=== PATIENT | male | born 1960 | race Caucasian/White ===

== ENCOUNTER 2016-05-22 13:05 | Emergency (ER) | payer OTHER ==
[~2016-05-22] VITALS: Wt 79.5 kg
[~2016-05-22 13:05] MED LIST: ALBU8.5H3 INH; MECL25TA2 PO
[2016-05-22] MEDS ORDERED: ONDANSETRON (ODT) 4 MG TAB ODT STA (14:28)
--- NOTE | 2016-05-22 14:47 | ERD ---
ER Documentation Chief Complaint Date/Time DATE: 05/22/16 TIME: 14:44 Chief Complaint dizzy, nausea, "face is hot" HPI This patient is a 55-year-old male presenting to the emergency department for feeling lightheaded for approximately 2 hours. The patient also states that when he closes eyes he feels that the room is spinning. He has had similar symptoms in the past. He also notes his face is feeling flushed and he feels nauseated. He has taken no medications for his symptoms. He has no shortness of breath, chest pain, headaches, fevers, chills or other symptoms at this time. There are no other alleviating or exacerbating factors at this time. ROS All systems reviewed and are negative except as per history of present illness. Medications Home Meds Active Scripts Mometasone-Formoterol (Dulera) 100-5 Mcg - 13 Gm Hfa.aer.ad, 2 PUFFS INHALATION BID, #1 INHALER Prov:TITUS ABBASI PA-C 05/22/16 Albuterol Sulfate* (Ventolin HFA*) 18 Gm Hfa.aer.ad, 2 PUFF INHALATION Q4H, #1 INHALER Prov:TITUS ABBASI PA-C 05/22/16 Meclizine Hcl* (Antivert*) 12.5 Mg Tab, 12.5 MG PO Q6H Y for DIZZINESS, #20 TAB Prov:TITUS ABBASI PA-C 05/22/16 Albuterol Sulfate* (Proair HFA*) 8.5 Gm Hfa.aer.ad, 2 PUFF INH Q4, #1 INHALER Prov:RODGER MONTGOMERY DO 01/02/16 Meclizine Hcl* (Antivert*) 25 Mg Tablet, 25 MG PO Q6H Y for DIZZINESS, #20 TAB Prov:RODGER MONTGOMERY DO 01/02/16 Allergies Allergies: Coded Allergies: No Known Allergy (Unverified , 01/02/16) PMhx/Soc Medical and Surgical Hx: pt denies Medical Hx, pt denies Surgical Hx Hx Alcohol Use: No Hx Substance Use: No Hx Tobacco Use: No FmHx Noncontributory for chief complaint Physical Exam Vitals Vital Signs Date Time Temp Pulse Resp B/P Pulse Ox O2 Delivery O2 Flow Rate FiO2 05/22/16 16:26 97.7 60 18 128/78 97 Room Air 05/22/16 13:20 97.9 60 20 153/60 100 Physical Exam INITIAL VITAL SIGNS: Reviewed by me GENERAL: The patient is well developed and appropriate for usual state of health in no apparent distress HEENT: Pupils equal, round, and reactive to light. EOMI. There is no scleral icterus. NECK: C-spine is soft and supple, there is no meningismus. There is no cervical lymphadenopathy. LUNGS: Clear to auscultation bilaterally. There are no rales, wheezes or rhonchi. HEART: Regular rate and rhythm, no murmurs, clicks, rubs or gallops. ABDOMEN: Soft, non-tender, non-distended. There are bowel sounds in all four quadrants. No rebound or guarding. EXTREMITIES: There is no peripheral cyanosis or edema. No focal swelling or erythema. NEUROLOGICAL: The patient moves all four extremities with 5/5 strength. Cranial nerves II - XII are intact. Normal gait. Alert and oriented. Negative Romberg's test. SKIN: There is no apparent rash or petechiae. HEME/LYMPHATIC: There is no evidence of excessive bruising or lymphedema. PSYCHIATRIC: The patient does not appear anxious or depressed. Result Diagram: 05/22/16 1459 05/22/16 1459 Results 24 hrs Laboratory Tests Test 05/22/16 14:58 05/22/16 14:59 Bedside Glucose 116mg/dL Anion Gap 16 Basophils # 0.010^3/ul Basophils % 0.6% Blood Urea Nitrogen 10mg/dl Calcium Level 9.5mg/dl Carbon Dioxide Level 28mmol/L Chloride Level 103mmol/L Creatinine 0.92mg/dl Eosinophils # 0.510^3/ul Eosinophils % 6.8% Glucose Level 111mg/dl Hematocrit 41.0% Hemoglobin 13.9g/dl Lymphocytes # 2.110^3/ul Lymphocytes % 28.1% Mean Corpuscular Hemoglobin 29.1pg Mean Corpuscular Hemoglobin Concent 33.8g/dl Mean Corpuscular Volume 86.1fl Mean Platelet Volume 8.3fl Monocytes # 0.610^3/ul Monocytes % 7.9% Neutrophils # 4.210^3/ul Neutrophils % 56.6% Nucleated Red Blood Cells # 0.010^3/ul Nucleated Red Blood Cells % 0.0/100WBC Platelet Count 67809^3/UL Potassium Level 3.8mmol/L Red Blood Count 4.7610^6/ul Red Cell Distribution Width 13.6% Sodium Level 143mmol/L White Blood Count 7.410^3/ul Current Medications Medications (Trade) Dose Ordered Sig/Tin Route PRN Reason Start Time Stop Time Status Last Admin Dose Admin Ondansetron HCl (Zofran Odt) 4 mg ONCE STAT ODT 05/22/16 14:28 05/22/16 14:29 DC 05/22/16 14:55 Procedures/MDM ED course: Lab results reviewed. No acute abnormalities noted. CT brain without contrast: Unremarkable unenhanced CT of the brain Medications: The patient was given PO zofran for nausea. EKG: Interpreted by ED physician. Rate/Rhythm: Normal sinus rhythm, 63 bpm. QRS, ST, T-waves: No changes consistent w/ acute ischemia Impression: No evidence of ischemia or arrhythmia Reevaluation: On re-evluation the patient was feeling improved and ambulating well within the department (3:30pm). MDM: 35-year-old male with no significant medical history presenting to the department with vertigo symptoms which began today. On physical examination there are no neurological deficits and all cranial nerves are intact. Review of lab results show no acute abnormalities. CT brain without contrast shows no intracranial abnormalities. The patient's primary diagnosis is benign positional vertigo and he has been given meclizine to be treated as an outpatient. He is stable for discharge. His questions and concerns have been addressed. Departure Condition: Stable Additional Instructions: Follow-up with your primary care physician within 1 week. If symptoms persist, referral to a specialist may be required. Return to the emergency department immediately should you have any new or worsening symptoms, uncontrolled fevers, or other unexplained symptoms. Take all medications as directed. Do not drive, work, or operate heavy machinery while taking Meclizine. TITUS ABBASI PA-C May 22, 2016 14:47
[2016-05-22 15:06] LABS: BASOPHILS % 0.6 % (0.0-2.0); EOSINOPHILS # 0.5 10^3/ul (0.0-0.5); EOSINOPHILS % 6.8 % (0.0-7.0); HEMOGLOBIN 13.9 g/dl (14.0-18.0); LYMPHOCYTES # 2.1 10^3/ul (0.8-2.9); LYMPHOCYTES % 28.1 % (15.0-51.0); MEAN CORPUSCULAR HEMOGLOBIN 29.1 pg (29.0-33.0); MEAN CORPUSCULAR HGB CONC 33.8 g/dl (32.0-37.0); MEAN CORPUSCULAR VOLUME 86.1 fl (82.0-101.0); MEAN PLATELET VOLUME 8.3 fl (7.4-10.4); MONOCYTE # 0.6 10^3/ul (0.3-0.9); MONOCYTES % 7.9 % (0.0-11.0); NEUTROPHIL # 4.2 10^3/ul (1.6-7.5); NEUTROPHILS % 56.6 % (39.0-77.0); PLATELET COUNT 226 10^3/UL (140-440); RED BLOOD COUNT 4.76 10^6/ul (4.70-6.10); RED CELL DISTRIBUTION WIDTH 13.6 % (11.5-14.5); UNCORRECTED WBC 7.4 10^3/ul (4.8-10.8); WHITE BLOOD COUNT 7.4 10^3/ul (4.8-10.8)
[2016-05-22 15:21] LABS: POTASSIUM 3.8 mmol/L (3.5-5.1)
[2016-05-22 15:24] LABS: CREATININE 0.92 mg/dl (0.61-1.24)
[2016-05-22 15:25] LABS: CALCIUM 9.5 mg/dl (8.4-10.2)
[2016-05-22 15:36] LABS: CONDITION 1
--- NOTE | 2016-05-22 15:36 | RADRPT ---
PROCEDURE: CT head CLINICAL INDICATION: Syncope TECHNIQUE: Contiguous 2.5 mm axial images were obtained from the vertex to the skull base. No int ravenous contrast was administered. The calculated dose length product (DLP) = 630.2 mGy-cm. The CTDlvol = 44.99 mGy. One or more of the following dose reduction techniques were used: Automated ex posure control, adjustment of the mA and or KV according to patient size, or use of iterative recons truction technique. COMPARISON: None FINDINGS: There is no evidence of acute intracranial hemorrhage or acute territorial infarct. No mass or mass effect is seen on this noncontrast study. The ventricles and cisterns are normal in size and confi guration. The medrano-white matter differentiation is within normal limits. The visualized paranasal sinuses are normally aerated. The bony calvarium is unremarkable IMPRESSION: Unremarkable unenhanced CT of the brain RPTAT: HH .Malcolm Whitehead MD, Date Time Electronically viewed and signed by .Malcolm Whitehead MD, MD on 05/22/2016 15:36 .W/
[2016-05-22] MEDS ORDERED: MECL12.574 PO (16:02)
[2016-05-22] MEDS ORDERED: ALBU18HF INHALATION (16:08)
[2016-05-22] MEDS ORDERED: MOME13HF2 INHALATION (16:09)
[2016-05-22 16:26] VITALS: BP 128/78; PULSE 60; RESP 18; TEMP 97.7
== END 2016-05-22 16:28 | disposition home or self-care (01) ==
LOC: FTE 13:05
DX: R42 Dizziness and giddiness (principal)
CPT/HCPCS: 36415; 70450; 80048; 82962; 85025; 93005; Z7502; Z7610

== ENCOUNTER 2016-06-18 12:39 | Emergency (ER) | payer OTHER ==
[~2016-06-18] VITALS: Wt 81.5 kg
[~2016-06-18 12:39] MED LIST changes: +ALBU18HF INHALATION; +MECL12.574 PO; +MOME13HF2 INHALATION
[2016-06-18] MEDS ORDERED: SODIUM CHLORIDE 0.9% 1L BAG IV* STA (15:33)
[2016-06-18] MEDS ORDERED: ONDANSETRON 4 MG INJ IV STA (15:33)
[2016-06-18] MEDS ORDERED: ALBUTEROL 0.5% (NEB) 2.5 MG/0.5 ML AMP INH STA (15:33)
[2016-06-18] MEDS ORDERED: IBUPROFEN 600 MG TAB PO ONE (16:00)
[2016-06-18] MEDS ORDERED: CEFTRIAXONE 1 GM/50 ML (PMX) 50 ML IVPB ONE (16:00)
[2016-06-18 16:11] LABS: ADD UMIC YES; URINE BILIRUBIN (Dip) NEGATIVE (NEGATIVE); URINE BLOOD (Dip) 2+ (NEGATIVE); URINE COLOR LT. YELLOW (YELLOW); URINE GLUCOSE (Dip) NEGATIVE (NEGATIVE); URINE KETONES (Dip) NEGATIVE (NEGATIVE); URINE LEUKOCYTE ESTERASE (Dip) NEGATIVE (NEGATIVE); URINE NITRITE (Dip) NEGATIVE (NEGATIVE); URINE TOTAL PROTEIN (Dip) 1+ (NEGATIVE); URINE UROBILINOGEN (Dip) 1.0 E.U./dL (0.1-1.0)
[2016-06-18 16:13] LABS: EOSINOPHILS % 0.2 % (0.0-7.0); HEMATOCRIT 46.2 % (42.0-52.0); HEMOGLOBIN 15.7 g/dl (14.0-18.0); LYMPHOCYTES # 0.5 10^3/ul (0.8-2.9); MEAN CORPUSCULAR HEMOGLOBIN 29.5 pg (29.0-33.0); MEAN CORPUSCULAR VOLUME 86.7 fl (82.0-101.0); MEAN PLATELET VOLUME 8.3 fl (7.4-10.4); MONOCYTE # 1.3 10^3/ul (0.3-0.9); MONOCYTES % 14.8 % (0.0-11.0); NEUTROPHIL # 6.8 10^3/ul (1.6-7.5); PLATELET COUNT 195 10^3/UL (140-440); RED BLOOD COUNT 5.33 10^6/ul (4.70-6.10); RED CELL DISTRIBUTION WIDTH 13.6 % (11.5-14.5); UNCORRECTED WBC 8.7 10^3/ul (4.8-10.8); WHITE BLOOD COUNT 8.7 10^3/ul (4.8-10.8)
[2016-06-18 16:19] LABS: MUCUS,URINE RARE; URINE RBCS 0-2 /HPF (0)
[2016-06-18 16:22] LABS: CONDITION 1
[2016-06-18 16:23] LABS: ALBUMIN 4.8 g/dl (3.3-4.9); CHLORIDE 99 mmol/L (97-110); INR 1.14; POTASSIUM 4.2 mmol/L (3.5-5.1); PROTIME 14.6 Sec (12.2-14.2); PT RATIO 1.1; SODIUM 143 mmol/L (135-144)
[2016-06-18 16:24] LABS: PARTIAL THROMBOPLASTIN TIME 36.8 Sec (25.0-35.0)
[2016-06-18 16:25] LABS: BILIRUBIN,INDIRECT 0.2 mg/dl (0-1.1); BILIRUBIN,TOTAL 0.2 mg/dl (0.2-1.3); CREATININE 1.21 mg/dl (0.61-1.24)
[2016-06-18 16:26] LABS: ALANINE AMINOTRANSFERASE 26 IU/L (13-69); ALBUMIN/GLOBULIN RATIO 1.14; ALKALINE PHOSPHATASE 103 IU/L (42-121); ANION GAP 22 (8-16); ASPARTATE AMINO TRANSFERASE 25 IU/L (15-46); BLOOD UREA NITROGEN 13 mg/dl (7-20); CALCIUM 9.5 mg/dl (8.4-10.2); CARBON DIOXIDE 26 mmol/L (21-31); GLUCOSE 118 mg/dl (70-220)
[2016-06-18 16:42] LABS: TROPONIN-I < 0.012 ng/ml (0.00-0.12)
--- NOTE | 2016-06-18 16:59 | RADRPT ---
PROCEDURE: XR Chest. CLINICAL INDICATION: Cough TECHNIQUE: Single AP portable chest COMPARISON: 01/02/2016 FINDINGS: The cardiomediastinal silhouette is within normal limits of size ..The lungs are clear without pleur al effusion or focal consolidation. No pneumothorax. The osseous structures and soft tissues are unr emarkable. IMPRESSION: 1. No evidence for active cardiopulmonary disease. RPTAT:AAJJ Kasey Painter Physician Date Time Electronically viewed and signed by Kasey Painter Physician on 06/18/2016 16:59 LISA/
[2016-06-18] MEDS ORDERED: OSELTAMIVIR 75 MG CAP PO ONE (18:30)
[2016-06-18] MEDS ORDERED: IBUP-1542 PO (18:43)
[2016-06-18] MEDS ORDERED: OSLT75C PO (18:43)
[2016-06-18] MEDS ORDERED: ALBU8.5H3 INH (18:43)
--- NOTE | 2016-06-18 18:54 | ERD ---
ER Documentation Chief Complaint Date/Time DATE: 06/18/16 TIME: 18:47 Chief Complaint FEVER/ASTHMA/SOB X 2 [place] HPI 55-year-old man presents with fever, body aches, nasal congestion, rhinorrhea, cough and wheezing, sore throat for 2 days. He does have a history of asthma although denies that this is an asthma attack. Patient denies chest pain or abdominal pain, no vomiting or diarrhea, no recent antibiotic use or recent travel. Patient denies headache or neck pain. Denies neck stiffness. ROS All systems reviewed and are negative except as per history of present illness. Medications Home Meds Active Scripts Ibuprofen* (Ibuprofen*) 600 Mg Tablet, 600 MG PO Q8 for FEVER, #30 TAB Prov:CHLOÉ DENNIS MD 06/18/16 Oseltamivir Phosphate* (Tamiflu*) 75 Mg Capsule, 75 MG PO BID for 5 Days, #9 CAP Prov:CHLOÉ DENNIS MD 06/18/16 Albuterol Sulfate* (Proair HFA*) 8.5 Gm Hfa.aer.ad, 2 PUFF INH Q6H Y for COUGH, #1 INHALER Prov:CHLOÉ DENNIS MD 06/18/16 Mometasone-Formoterol (Dulera) 100-5 Mcg - 13 Gm Hfa.aer.ad, 2 PUFFS INHALATION BID, #1 INHALER Prov:TITUS ABBASI PA-C 05/22/16 Albuterol Sulfate* (Ventolin HFA*) 18 Gm Hfa.aer.ad, 2 PUFF INHALATION Q4H, #1 INHALER Prov:TITUS ABBASI PA-C 05/22/16 Meclizine Hcl* (Antivert*) 12.5 Mg Tab, 12.5 MG PO Q6H Y for DIZZINESS, #20 TAB Prov:TITUS ABBASI PA-C 05/22/16 Discontinued Scripts Albuterol Sulfate* (Proair HFA*) 8.5 Gm Hfa.aer.ad, 2 PUFF INH Q4, #1 INHALER Prov:RODGER MONTGOMERY DO 01/02/16 Meclizine Hcl* (Antivert*) 25 Mg Tablet, 25 MG PO Q6H Y for DIZZINESS, #20 TAB Prov:RODGER MONTGOMERY DO 01/02/16 Allergies Allergies: Coded Allergies: No Known Allergy (Unverified , 06/18/16) PMhx/Soc Asthma Medical and Surgical Hx: pt denies Medical Hx, pt denies Surgical Hx Hx Alcohol Use: No Hx Substance Use: No Hx Tobacco Use: No Smoking Status: Light tobacco smoker FmHx Family History: No diabetes Physical Exam Vitals Vital Signs Date Time Temp Pulse Resp B/P Pulse Ox O2 Delivery O2 Flow Rate FiO2 06/18/16 18:25 99.6 89 18 117/58 99 Room Air 06/18/16 17:15 128 22 93 21 06/18/16 16:12 Nasal Cannula 06/18/16 12:41 103.8 128 22 132/67 93 Physical Exam GENERAL: Well-developed, well-nourished, well-hydrated, febrile HEENT: Moist mucous membranes, positive nasal congestion and rhinorrhea, no cervical spine tenderness or step-off deformities, no goiter, no jaundice or icterus, extraocular movements intact without pain. No submandibular induration , and there is mild pharyngeal erythema but no exudates. NEURO: Alert and oriented 3, cranial nerves II through XII intact bilaterally, pupils equal round reactive to light, no focal deficits or facial asymmetry, sensation intact distally Strength 5/5 in upper and lower extremities bilaterally CARDIAC: Tachycardic and regular, no murmurs rubs or gallops LUNGS: Scattered wheezes bilaterally, no crackles or stridor ABDOMEN: Soft nontender, no guarding, no rigidity, no rebound, no psoas sign no obturator sign. Normoactive bowel sounds SKIN: Warm and dry to touch, no abrasions, contusions, or hematomas, no lacerations, no ecchymosis, no target lesions, and without ulcers EXTREMITIES: No clubbing cyanosis or edema, calves are bilaterally symmetrical, no Homans sign, no popliteal cord sign. Distal pulses equal and bilateral PSYCH: Normal affect without agitation or irritability Result Diagram: 06/18/16 1600 06/18/16 1600 Results 24 hrs Laboratory Tests Test 06/18/16 16:00 06/18/16 16:05 Activated Partial Thromboplast Time 36.8Sec Alanine Aminotransferase (ALT/SGPT) 26IU/L Albumin 4.8g/dl Albumin/Globulin Ratio 1.14 Alkaline Phosphatase 103IU/L Anion Gap 22 Aspartate Amino Transf (AST/SGOT) 25IU/L Basophils # 0.010^3/ul Basophils % 0.0% Blood Urea Nitrogen 13mg/dl Calcium Level 9.5mg/dl Carbon Dioxide Level 26mmol/L Chloride Level 99mmol/L Creatinine 1.21mg/dl Direct Bilirubin 0.00mg/dl Eosinophils # 0.010^3/ul Eosinophils % 0.2% Globulin 4.20g/dl Glucose Level 118mg/dl Hematocrit 46.2% Hemoglobin 15.7g/dl INR International Normalized Ratio 1.14 Indirect Bilirubin 0.2mg/dl Lactic Acid Level 1.3mmol/L Lipase 67U/L Lymphocytes # 0.510^3/ul Lymphocytes % 6.0% Mean Corpuscular Hemoglobin 29.5pg Mean Corpuscular Hemoglobin Concent 34.0g/dl Mean Corpuscular Volume 86.7fl Mean Platelet Volume 8.3fl Monocytes # 1.310^3/ul Monocytes % 14.8% Neutrophils # 6.810^3/ul Neutrophils % 79.0% Nucleated Red Blood Cells # 0.010^3/ul Nucleated Red Blood Cells % 0.0/100WBC Platelet Count 38354^3/UL Potassium Level 4.2mmol/L Prothrombin Time 14.6Sec Prothrombin Time Ratio 1.1 Red Blood Count 5.3310^6/ul Red Cell Distribution Width 13.6% Sodium Level 143mmol/L Total Bilirubin 0.2mg/dl Total Protein 9.0g/dl Troponin I < 0.012ng/ml White Blood Count 8.710^3/ul Urine Bilirubin NEGATIVE Urine Clarity CLEAR Urine Color LT. YELLOW Urine Glucose NEGATIVE% Urine Hemoglobin 2+ Urine Ketones NEGATIVE Urine Leukocyte Esterase NEGATIVE Urine Microscopic RBC 0-2/HPF Urine Microscopic WBC NONE SEEN/HPF Urine Mucus RARE Urine Nitrite NEGATIVE Urine Specific [place] >=1.030 Urine Total Protein 1+ Urine Urobilinogen 1.0 E.U./dL Urine pH 5.5 Current Medications Medications (Trade) Dose Ordered Sig/Tin Route PRN Reason Start Time Stop Time Status Last Admin Dose Admin Albuterol (Proventil 0.5% (Neb)) 10 mg ONCE STAT INH 06/18/16 15:33 06/18/16 15:36 DC 06/18/16 17:14 Sodium Chloride (NS) 3,000 ml BOLUS OVER 2 HOURS STAT IV* 06/18/16 15:33 06/18/16 15:36 DC 06/18/16 16:10 Ibuprofen (Motrin) 600 mg ONCE ONCE PO 06/18/16 16:00 06/18/16 16:01 DC 06/18/16 16:08 Ondansetron HCl 4 mg 4 mg ONCE STAT IV 06/18/16 15:33 06/18/16 15:36 DC 06/18/16 16:10 Ceftriaxone Sodium (Rocephin) 50 ml @ 100 mls/hr ONCE ONCE IVPB 06/18/16 16:00 06/18/16 16:29 DC 06/18/16 16:11 Oseltamivir Phosphate (Tamiflu) 75 mg ONCE ONCE PO 06/18/16 18:30 06/18/16 18:31 DC Procedures/[facility] IV line was established patient was placed on cardiac rehabilitation program director rhythm strip revealed a sinus tachycardia at 110 bpm with upright P and T waves. Patient was febrile. I administered about 3 L normal saline intravenously, ibuprofen 600 mg p.o., Zofran 4 mg IV, and ceftriaxone 1 g IV. I also administered albuterol 10 mg via nebulizer for cough and scattered wheezes. CBC was unremarkable, electrolytes were normal, liver function tests are normal , troponin was negative, lactic acid was low at 1.3. Urine analysis was negative for infection. Influenza swabs were performed influenza A is positive , influenza B negative. I treated the patient with Tamiflu 75 mg p.o. here in the ED. One AP view of the chest performed, read by me reveals no acute infiltrates, normal mediastinum, sharp costophrenic and cardiac borders, no air under the diaphragm. Otherwise unremarkable chest x-ray. I reevaluated the patient. He has defervesced and tachycardia has resolved, vital signs are normal at this time. Patient feels much better and his repeat pulmonary exam revealed clear lungs without wheezing or stridor. I feel the patient can be managed as an outpatient with Tamiflu and albuterol inhaler. Both verbal and written recommendations were provided upon discharge. Differential diagnoses considered, included but not limited to acute coronary syndrome, pulmonary embolism, aortic dissection, abdominal aortic aneurysm, sepsis, stroke, meningitis, encephalitis, pneumonia, appendicitis, cholecystitis , bowel obstruction, pyelonephritis, nephrolithiasis, cystitis, as well as metabolic, hematologic, and electrolyte abnormalities. As well as abscess, cellulitis, fractures, and dislocations. Patient feels much better at this time, and vital signs are normal, symptoms have improved. I did give strict instructions to return to the ED if symptoms continue or worsen, patient will otherwise follow-up with primary care physician. Patient understood instructions and agreed to plan. Departure Diagnosis: Primary Impression: Influenza A with respiratory manifestations Condition: Good Patient Instructions: Influenza (Adult) CHLOÉ DENNIS MD Jun 18, 2016 18:54
[2016-06-18] MEDS ORDERED: ALBUTEROL 0.083% (NEB) 2.5 MG/3 ML AMP HHN ONE (21:00)
[2016-06-18 21:40] VITALS: BP 123/64; PULSE 83; RESP 18; TEMP 97.9
== END 2016-06-18 21:40 | disposition home or self-care (01) ==
LOC: E/R 12:39
DX: J10.1 Influenza due to other identified influenza virus with other respiratory manifestations (principal); R40.2142 Coma scale, eyes open, spontaneous, at arrival to emergency department; R40.2252 Coma scale, best verbal response, oriented, at arrival to emergency department; R40.2362 Coma scale, best motor response, obeys commands, at arrival to emergency department; F17.210 Nicotine dependence, cigarettes, uncomplicated; J45.901 Unspecified asthma with (acute) exacerbation
CPT/HCPCS: 36415; 71010; 80053; 81001; 83605; 83690; 84484; 85025; 85610; 85730; 87040; 87086; 87400; 94640; 94644; 96374; 96375; J0696; J2405; J7030; Z7502; Z7610; 81003

== ENCOUNTER 2017-02-05 09:49 | Emergency (ER) | payer OTHER ==
[~2017-02-05] VITALS: Ht 167.6 cm; Wt 83.0 kg
[~2017-02-05 09:49] MED LIST changes: +IBUP-1542 PO; -MECL25TA2 PO; +OSLT75C PO
[2017-02-05 09:52] VITALS: Ht 167.6 cm; Wt 83.0 kg
[2017-02-05] MEDS ORDERED: TETRACAINE 0.5% 4 ML OPH LEFT EYE ONE (12:00)
[2017-02-05] MEDS ORDERED: FLUORESCEIN STRIP LEFT EYE ONE (12:00)
--- NOTE | 2017-02-05 13:44 | RADRPT ---
PROCEDURE: XR facial bones CLINICAL INDICATION: Injury left eye socket TECHNIQUE: A Novak, a Le view and a lateral view were submitted. COMPARISON: None FINDINGS: Paranasal sinuses : appear well-developed and well-aerated with no opacification, air-fluid levels or mucoperiosteal thickening. Mastoid air cells: appear well aerated. Osseous structures: appear intact. Temporomandibular joints: appear unremarkable Soft tissues: There is superficial periorbital soft tissue swelling as noted on the lateral projecti on. IMPRESSION: 1. Periorbital soft tissue swelling. 2. Otherwise, unremarkable facial bone study. Physician Darnell Date Time Electronically viewed and signed by Physician Darnell on 02/05/2017 13:44 /
[2017-02-05] MEDS ORDERED: ACET325T33 PO (13:56)
--- NOTE | 2017-02-05 15:25 | ERD ---
ER Documentation Chief Complaint Date/Time DATE: 02/05/17 TIME: 14:35 Chief Complaint left eye pain, headache s/p a drill fell from about 18ft and hit his head HPI 56-year-old male complaining of left eye pain after a drill fell off of a ladder and hit his left side of head. Patient denies any agile deficits or loss of consciousness. He denies headaches. He was concerned because he "felt bleeding from his eye". Denies vomiting. Has not taken medications for symptoms. ROS All systems reviewed and are negative except as per history of present illness. Medications Home Meds Active Scripts Acetaminophen* (Tylenol*) 325 Mg Tablet, 2 TAB PO Q8 Y for PAIN AND OR ELEVATED TEMP, #20 TAB Prov:PHILIPP MARSHALL PA-C 02/05/17 Ibuprofen* (Ibuprofen*) 600 Mg Tablet, 600 MG PO Q8 for FEVER, #30 TAB Prov:CHLOÉ DENNIS MD 06/18/16 Oseltamivir Phosphate* (Tamiflu*) 75 Mg Capsule, 75 MG PO BID for 5 Days, #9 CAP Prov:CHLOÉ DENNIS MD 06/18/16 Albuterol Sulfate* (Proair HFA*) 8.5 Gm Hfa.aer.ad, 2 PUFF INH Q6H Y for COUGH, #1 INHALER Prov:CHLOÉ DENNIS MD 06/18/16 Mometasone-Formoterol (Dulera) 100-5 Mcg - 13 Gm Hfa.aer.ad, 2 PUFFS INHALATION BID, #1 INHALER Prov:TITUS ABBASI PA-C 05/22/16 Albuterol Sulfate* (Ventolin HFA*) 18 Gm Hfa.aer.ad, 2 PUFF INHALATION Q4H, #1 INHALER Prov:TITUS ABBASI PA-C 05/22/16 Meclizine Hcl* (Antivert*) 12.5 Mg Tab, 12.5 MG PO Q6H Y for DIZZINESS, #20 TAB Prov:TITUS ABBASI PA-C 05/22/16 Allergies Allergies: Coded Allergies: No Known Allergy (Unverified , 06/18/16) PMhx/Soc Hx Alcohol Use: No Hx Substance Use: No Hx Tobacco Use: No Physical Exam Vitals Vital Signs Date Time Temp Pulse Resp B/P Pulse Ox O2 Delivery O2 Flow Rate FiO2 02/05/17 09:52 98.3 71 18 133/75 98 Physical Exam GENERAL: The patient is well-appearing, well-nourished, in no acute distress HEENT: Atraumatic. Conjunctivae are pink. Pupils equal, round, and reactive to light. There is no scleral icterus. Tympanic membranes clear bilaterally. Oropharynx clear. No nystagmus or photophobia. CHEST: Clear to auscultation bilaterally. There are no rales, wheezes or rhonchi. HEART: Regular rate and rhythm. No murmurs, clicks, rubs or gallops. No S3 or S4. NEUROLOGIC: Alert and oriented. Cranial nerves II through XII intact. Motor strength in all 4 extremities with 5 out of 5 strength. Sensation grossly intact. Normal speech and gait. Babinski negative. DTR 2+ throughout. SKIN: Linear horizontal laceration approximately 3 cm in length directly under left lower eyelid. Mild bleeding. Results 24 hrs Current Medications Medications (Trade) Dose Ordered Sig/Tin Route PRN Reason Start Time Stop Time Status Last Admin Dose Admin Tetracaine HCl (Tetracaine 0.5% Steri-Unit Lynnette) 1 drop ONCE ONCE LEFT EYE 02/05/17 12:00 02/05/17 12:01 DC Fluorescein Sodium (Xnjam-G-Ftljz) 1 strip ONCE ONCE LEFT EYE 02/05/17 12:00 02/05/17 12:01 DC Procedures/MDM DIAGNOSTIC IMAGING REPORT Patient: EULALIA BURKETT : 1960 Age: 56 Sex: M [id number] DOS: 02/05/17 1152 Ordering MD: MARCY MARSHALL PA-C Location: [facility] Room/Bed: PROCEDURE: XR facial bones CLINICAL INDICATION: Injury left eye socket TECHNIQUE: A Novak, a Le view and a lateral view were submitted. COMPARISON: None FINDINGS: Paranasal sinuses : appear well-developed and well-aerated with no opacification, air-fluid levels or mucoperiosteal thickening. Mastoid air cells: appear well aerated. Osseous structures: appear intact. Temporomandibular joints: appear unremarkable Soft tissues: There is superficial periorbital soft tissue swelling as noted on the lateral projection. IMPRESSION: 1. Periorbital soft tissue swelling. 2. Otherwise, unremarkable facial bone study. ER Course: Fluoroscein stain done and no ocular lacerations or abrasions noted. No foreign bodies noted. Bacitracin put in eye to avoid Dermabond exposure. Laceration closed using Dermabond. Patient tolerated procedure well. MDM: Low suspicion for facial fracture. I have low suspicion for ocular injury. I have low suspicion for intracranial hemorrhage or mass-effect. Patient's neuro exam is within normal limits and patient is alert and oriented. Patient was told to allow Dermabond to fall off on its own. All questions answered at discharge. Patient was recommended to return if symptoms of dizziness or severe headache develop. Patient was told if he begins having visual changes to return to the emergency room. All questions answered at discharge. Departure Diagnosis: Primary Impression: Laceration Condition: Stable Patient Instructions: Laceration, Face (Skin Glue) Referrals: [facility] YOU HAVE RECEIVED A MEDICAL SCREENING EXAM AND THE RESULTS INDICATE THAT YOU DO NOT HAVE A CONDITION THAT REQUIRES URGENT TREATMENT IN THE EMERGENCY DEPARTMENT. FURTHER EVALUATION AND TREATMENT OF YOUR CONDITION CAN WAIT UNTIL YOU ARE SEEN IN YOUR DOCTORS OFFICE WITHIN THE NEXT 1-2 DAYS. IT IS YOUR RESPONSIBILITY TO MAKE AN APPOINTMENT FOR FOLOW-UP CARE. IF YOU HAVE A PRIMARY DOCTOR --you should call your primary doctor and schedule an appointment IF YOU DO NOT HAVE A PRIMARY DOCTOR YOU CAN CALL OUR PHYSICIAN REFERRAL HOTLINE AT IF YOU CAN NOT AFFORD TO SEE A PHYSICIAN YOU CAN CHOSE FROM THE FOLLOWING [facility] [address] [facility]. [facility] [address] [facility] [facility] [address] [facility] [facility] [address]. [facility] [address] [facility] [facility]. [address] Additional Instructions: FOLLOW UP WITH YOUR PRIMARY CARE PHYSICIAN TOMORROW.Return to this facility if you are not improving as expected. PIHLIPP MARSHALL PA-C Feb 05, 2017 15:25
--- NOTE | 2017-02-09 14:51 | RADRPT ---
PROCEDURE: XR lumbar spine CLINICAL INDICATION: Trauma, back pain TECHNIQUE: 3 views of the lumbar spine obtained COMPARISON: None available FINDINGS: No fracture is identified. There is relative straightening of the lordosis of the upper lumbar spine . There is mild retrolisthesis at L3-4. There are multilevel anterior osteophytes. There is disc spa ce narrowing which appears moderate at L5-S1, and L3-4 and L4-5. Atherosclerotic calcifications are noted. IMPRESSION: No fracture identified. Lumbar spondylosis/degenerative enthesopathy, more pronounced at L5-S1. Mild retrolisthesis at L3-4. RPTAT: VV .Jesus Higginbotham MD, MD Date Time Electronically viewed and signed by .Jesus Higginbotham MD, on 02/09/2017 14:51 .O/
--- NOTE | 2017-02-09 14:52 | RADRPT ---
PROCEDURE: XR cervical spine CLINICAL INDICATION: Trauma, neck pain TECHNIQUE: 3 views of the cervical spine obtained COMPARISON: None available FINDINGS: No fracture is identified. There is preservation of the lordosis of the cervical spine. Alignment ap pears intact. Vertebral bodies are maintained in height. There are anterior osteophytes at C3-4 thro ugh C6-7. There is mild disc space narrowing at C3-4. Prevertebral soft tissues appear unremarkable. IMPRESSION: No fracture identified. Cervical spondylosis/degenerative enthesopathy, more pronounced at C3-4. RPTAT: VV .Jesus Higginbotham MD, Date Time Electronically viewed and signed by .Jesus Higginbotham MD, on 02/09/2017 14:52 .O/
== END 2017-02-05 14:16 | disposition home or self-care (01) ==
LOC: FTE 09:49
DX: S01.112A Laceration without foreign body of left eyelid and periocular area, initial encounter (principal); W20.8XXA Other cause of strike by thrown, projected or falling object, initial encounter; Y92.9 Unspecified place or not applicable
CPT/HCPCS: 12013; 70140; Z7502; Z7610; 72040; 72100

== ENCOUNTER 2017-02-09 12:44 | Emergency (ER) | payer OTHER ==
[~2017-02-09] VITALS: Ht 152.4 cm; Wt 78.0 kg
[~2017-02-09 12:44] MED LIST changes: +ACET325T33 PO
[2017-02-09 12:51] VITALS: Ht 152.4 cm; Wt 78.0 kg
[2017-02-09] MEDS ORDERED: IBUP-1542 PO (15:03)
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
[2017-02-09 15:12] VITALS: BP 138/70; PULSE 77; RESP 18; TEMP 98
== END 2017-02-09 15:14 | disposition home or self-care (01) ==
LOC: FTE 12:44
DX: S33.5XXD Sprain of ligaments of lumbar spine, subsequent encounter (principal); S13.9XXD Sprain of joints and ligaments of unspecified parts of neck, subsequent encounter; W22.8XXD Striking against or struck by other objects, subsequent encounter
CPT/HCPCS: 99283

== ENCOUNTER 2017-05-06 12:02 | Emergency (ER) | payer OTHER ==
[~2017-05-06] VITALS: Ht 160 cm; Wt 80.0 kg
[2017-05-06 12:08] VITALS: Ht 160 cm; Wt 80.0 kg
[2017-05-06] MEDS ORDERED: ACETAMINOPHEN 500 MG TAB PO STA (14:44)
[2017-05-06] MEDS ORDERED: KETOROLAC 30 MG INJ IM STA (14:44)
--- NOTE | 2017-05-06 15:06 | RADRPT ---
PROCEDURE: Chest x-ray CLINICAL INDICATION: Cough TECHNIQUE: Chest 2 views COMPARISON: None FINDINGS: The heart is normal in size. The pulmonary vessels are normal in caliber. The lungs are clear. Th e costophrenic angles are sharp. The visualized bony thorax is unremarkable. IMPRESSION: No acute cardiopulmonary disease. RPTAT: HH .Malcolm Whitehead MD, MD Date Time Electronically viewed and signed by .Malcolm Whitehead MD, MD on 05/06/2017 15:06 .W/
[2017-05-06] MEDS ORDERED: IBUP-1542 PO (16:36)
[2017-05-06] MEDS ORDERED: GUAI-637 PO (16:37)
[2017-05-06] MEDS ORDERED: OSLT75C PO (16:37)
[2017-05-06] MEDS ORDERED: ACET500C5 PO (16:37)
[2017-05-06 16:45] VITALS: BP 106/78; PULSE 72; RESP 20; TEMP 100.8
--- NOTE | 2017-05-06 18:28 | ERD ---
ER Documentation Chief Complaint Chief Complaint FLU X 2 DAYS, BODY ACHES, FEVER,COUGH HPI Patient is a 56-year-old male with a past medical history of asthma who presents ED for concerns of flulike symptoms including generalized body aches, fever, cough, rhinorrhea, sore throat 2 days. Patient reports taking Advil last night for symptoms. Patient is a tactile fevers. Patient denies taking any other medications. Patient states he has pain with swallowing. Patient denies any drooling, trismus or hyperextension of his neck. Patient denies any nausea, vomiting, abdominal pain or diarrhea. Patient states that his cough is dry in nature. Patient states occasionally a lot of white phlegm production. Patient states he has chest pain only when coughing. Patient denies any shortness of breath, left upper extremity pain, diaphoresis or LOC. Patient did not receive the flu vaccine this year. No recent travel. No sick contacts. ROS All systems reviewed and are negative except as per history of present illness. Medications Home Meds Active Scripts Guaifenesin* (Robitussin*) 100 Mg/5 Ml Syrup, 100 MG PO Q4H Y for COUGH, #1 BOT Prov:NICOLA WANGC 05/06/17 Oseltamivir Phosphate* (Tamiflu*) 75 Mg Capsule, 75 MG PO BID for 5 Days, CAP Prov:NICOLA WANG PA-C 05/06/17 Acetaminophen* (Tylophen*) 500 Mg Capsule, 1 CAP PO Q6H Y for PAIN AND OR ELEVATED TEMP, #20 CAP Prov:NICOLA WANG PA-C 05/06/17 Ibuprofen* (Motrin*) 600 Mg Tab, 600 MG PO Q6, #30 TAB Prov:NICOLA WANGC 05/06/17 Ibuprofen* (Motrin*) 600 Mg Tab, 600 MG PO Q6, #15 TAB Prov:ISSAC CHIRINOS MD 02/09/17 Acetaminophen* (Tylenol*) 325 Mg Tablet, 2 TAB PO Q8 Y for PAIN AND OR ELEVATED TEMP, #20 TAB Prov:PHILIPP MARSHALL PA-C 02/05/17 Ibuprofen* (Ibuprofen*) 600 Mg Tablet, 600 MG PO Q8 for FEVER, #30 TAB Prov:CHLOÉ DENNIS MD 06/18/16 Oseltamivir Phosphate* (Tamiflu*) 75 Mg Capsule, 75 MG PO BID for 5 Days, #9 CAP Prov:CHLOÉ DENNIS MD 06/18/16 Albuterol Sulfate* (Proair HFA*) 8.5 Gm Hfa.aer.ad, 2 PUFF INH Q6H Y for COUGH, #1 INHALER Prov:CHLOÉ DENNIS MD 06/18/16 Mometasone-Formoterol (Dulera) 100-5 Mcg - 13 Gm Hfa.aer.ad, 2 PUFFS INHALATION BID, #1 INHALER Prov:TITUS ABBASI PA-C 05/22/16 Albuterol Sulfate* (Ventolin HFA*) 18 Gm Hfa.aer.ad, 2 PUFF INHALATION Q4H, #1 INHALER Prov:TITUS ABBASI PA-C 05/22/16 Meclizine Hcl* (Antivert*) 12.5 Mg Tab, 12.5 MG PO Q6H Y for DIZZINESS, #20 TAB Prov:TITUS ABBASI PA-C 05/22/16 Allergies Allergies: Coded Allergies: No Known Allergy (Unverified , 06/18/16) PMhx/Soc Medical and Surgical Hx: pt denies Medical Hx, pt denies Surgical Hx History of Surgery: No Anesthesia Reaction: No Hx Neurological Disorder: No Hx Respiratory Disorders: No Hx Cardiac Disorders: No Hx Psychiatric Problems: No Hx Miscellaneous Medical Probl: No Hx Alcohol Use: No Hx Substance Use: No Hx Tobacco Use: No Smoking Status: Never smoker Physical Exam Vitals Vital Signs Date Time Temp Pulse Resp B/P Pulse Ox O2 Delivery O2 Flow Rate FiO2 05/06/17 16:45 100.8 72 20 106/78 97 Room Air 05/06/17 15:00 101.8 05/06/17 12:08 102.3 119 20 134/79 99 Physical Exam GENERAL: Well-developed, well-nourished male. Appears in no acute distress. Speaking in full sentences. HEAD: Normocephalic, atraumatic. No deformities or ecchymosis. EYE: Pupils equal, round, and reactive to light. EOMs intact. No conjunctival erythema. No eye discharge. ENT: External ear without any masses or tenderness. Auditory canals clear bilaterally. TM visualized bilaterally, non-erythematous, non-bulging. Nasal mucosa pink with no discharge. Oropharynx is pink without any tonsillar erythema or exudates. No uvula deviation. No kissing tonsils. NECK: Supple. No meningismus. Normal ROM of the neck. LUNGS: Clear to auscultation bilaterally. No rhonchi, wheezing, rales or coarse breath sounds. No tripoding, no nasal flaring, no abdominal retractions were noted. HEART: Tachycardic. Regular rhythm. No murmurs, rubs or gallops. EXTREMITES: Equal pulses bilaterally. No peripheral clubbing, cyanosis or edema. No unilateral leg swelling. NEUROLOGIC: Alert and oriented to person, place and time. Moving all four extremities. 5/5 strength in all extremities. Normal speech. Steady gait. SKIN: Normal color. Warm and dry. No rashes or lesions. Results 24 hrs Current Medications Medications (Trade) Dose Ordered Sig/Tin Route PRN Reason Start Time Stop Time Status Last Admin Dose Admin Ketorolac Tromethamine (Toradol) 30 mg ONCE STAT IM 05/06/17 14:44 05/06/17 14:45 DC 05/06/17 15:07 Acetaminophen (Tylenol Tab) 1,000 mg ONCE STAT PO 05/06/17 14:44 05/06/17 14:45 DC 05/06/17 15:07 Procedures/MDM ED COURSE: The patient was stable throughout ED course. I kept the patient and/or family informed of laboratory and diagnostic imaging results throughout the ED course. EKG: Read by Dr. Crisostomo, attending physician. EKG shows normal sinus rhythm at a rate of 107 bpm. No arrhythmias, acute ST elevations or T wave changes were noted. DIAGNOSTIC IMAGING: Read by radiologist. Patient: EULALIA BURKETT : 1960 Age: 56 Sex: M MR #: [id number] DOS: 05/06/17 1444 Ordering MD: NICOLA WANG PA-C Location: [facility] Room/Bed: PROCEDURE: Chest x-ray CLINICAL INDICATION: Cough TECHNIQUE: Chest 2 views COMPARISON: None FINDINGS: The heart is normal in size. The pulmonary vessels are normal in caliber. The lungs are clear. The costophrenic angles are sharp. The visualized bony thorax is unremarkable. IMPRESSION: No acute cardiopulmonary disease. RPTAT: HH .Malcolm Whitehead MD, Date Time Electronically viewed and signed by .Malcolm Whitehead MD, MD on 05/06/2017 15:06 .W/ CC: NICOLA WANG PA-C MEDICATIONS GIVEN: Tylenol, Toradol IM Patient tolerated medication well with no adverse reactions. MEDICAL DECISION MAKING: This is a 56-year-old male who presents ED for concerns of flulike symptoms 2 days.. Vital signs were reviewed. Patient was febrile initial presentation. Patient's temperature was downtrending after receiving antipyretics in the ED. Patient was not hypoxic. ENT exam was normal. Exam is normal. Patient had no abdominal retractions, nasal flaring, no tripoding. EKG was obtained and showed sinus tachycardia. EKG was reviewed by ED attending. Chest x-ray was unremarkable. Flu swab was positive for influenza B. Given these findings, the patients presentation is most consistent with influenza B. Low suspicion for pneumonia, meningitis, sinusitis, otitis externa, acute otitis media, strep pharyngitis, epiglottitis or peritonsillar abscess. Low suspicion for sepsis at this time. Patient was nontoxic, [id number] prior to discharge. Patient's fever and tachycardia did improve. I did discuss case with my supervising physician Dr. Crisostomo who agreed with my workup and management. PRESCRIPTIONS: Tylenol, ibuprofen, Robitussin, Tamiflu DISCHARGE: At this time, patient is stable for discharge and outpatient management. Patient was given a copy of all imaging studies as well as testing done today. Supportive therapies such as OTC throat lozenges, salt water gurgles, popsicles and jello discussed. I have instructed the patient to follow-up with his/her primary care physician in 1-2 days. I have instructed the patient to promptly return to the ER for any new or worsening symptoms including increased pain, swelling, fever, nausea, vomiting, weakness or difficulty breathing. The patient and/or family expressed understanding of and agreement with this plan. All questions were answered. Home care instructions were provided. Disclaimer: Inadvertent spelling and grammatical errors are likely due to EHR/ dictation software use and do not reflect on the overall quality of patient care. Also, please note that the electronic time recorded on this note does not necessarily reflect the actual time of the patient encounter. Departure Diagnosis: Primary Impression: Influenza Condition: Stable Patient Instructions: Influenza (Adult) Referrals: EDUARDO JUAREZ MD (PCP) Additional Instructions: Call your primary care doctor TOMORROW for an appointment during the next 1-2 days.See the doctor sooner or return here if your condition worsens before your appointment time. NICOLA WANG PA-C May 06, 2017 18:28
== END 2017-05-06 16:49 | disposition home or self-care (01) ==
LOC: FTE 12:02
DX: J10.1 Influenza due to other identified influenza virus with other respiratory manifestations (principal); R07.9 Chest pain, unspecified
CPT/HCPCS: 71020; 87400; 93005; 96372; J1885; Z7502; Z7610